=== PATIENT | female | born 1950 | race Caucasian/White ===

== ENCOUNTER → 2017-07-04 15:57 | Outpatient (CLI) | payer MEDICARE ==
[2010-07-12 11:13] VITALS: BMI 27.4
== END | disposition home or self-care (01) ==
LOC: D.MAMMO 14:00
DX: Z85.3 Personal history of malignant neoplasm of breast (principal); Z12.31 Encounter for screening mammogram for malignant neoplasm of breast

== ENCOUNTER → 2018-07-01 10:06 | Outpatient (CLI) | payer MEDICARE ==
[2010-07-12 11:13] VITALS: BMI 27.4
== END | disposition home or self-care (01) ==
LOC: D.RAD 10:06
DX: R13.10 Dysphagia, unspecified (principal)

== ENCOUNTER 2018-07-17 08:00 | Outpatient (CLI) | payer MEDICARE ==
[2010-07-12 11:13] VITALS: BMI 27.4
== END 2018-07-17 09:00 | disposition home or self-care (01) ==
LOC: D.MAMMO 08:00
DX: Z12.31 Encounter for screening mammogram for malignant neoplasm of breast (principal)

== ENCOUNTER 2019-01-27 08:00 | Outpatient (CLI) | payer MEDICARE ==
[2010-07-12 11:13] VITALS: BMI 27.4
== END 2019-01-27 16:48 | disposition home or self-care (01) ==
LOC: D.MAMMO 08:00
PROVIDERS: ATTEND Family Medicine
DX: R92.8 Other abnormal and inconclusive findings on diagnostic imaging of breast (principal)